=== PATIENT | male | born 1965 | race Caucasian/White ===

== ENCOUNTER 2016-07-10 03:46 | Emergency (ER) | payer SELFPAY ==
[~2016-07-10] VITALS: Ht 182.9 cm; Wt 130.0 kg
[2016-07-10 03:48] VITALS: BP 229/129; PULSE 78; RESP 20; TEMP 97.8; O2SAT 99
[2016-07-10 03:53] VITALS: BP 186/114
[2016-07-10] MEDS ORDERED: LIDOCAINE HCL 1% PF 30 ML VIAL INFIL ONE (04:15)
[2016-07-10] MEDS ORDERED: cloNIDine HCL 0.1 MG TAB PO ONE (04:15)
[2016-07-10] MEDS ORDERED: TETANUS/DIPHTHERIA TOXOID ADULT 0.5 ML VIAL IM ONE (04:15)
--- NOTE | 2016-07-10 04:16 | PD ---
HPI Chief Complaint: Laceration/Skin Injury Time Seen by Provider: 04:00 Travel History International Travel<30 days: No Contact w/Intl Traveler<30days: No Traveled to known affect area: No History of Present Illness HPI 50-year-old male presents for evaluation of lacerations to the plantar aspect of the left foot. Prior to arrival the patient was getting up to use the bathroom when he slipped on a bed railing that was sitting next to the bed. He sustained lacerations on the railing. He also twisted his right ankle in the process. He now has lateral right ankle pain, mild, aggravated by movement, as well as pain associated with the lacerations which is worse with palpation. Denies any range of motion limitations. Last tetanus vaccination unknown. No other complaints. PFSH Past Medical History Medical History: Denies Significant Hx Diminished Hearing: No Tetanus Vaccination: Unknown Past Surgical History Other Surgery: Yes (RIGHT TENDON) Social History Alcohol Use: Yes (WEEKLY) Tobacco Use: No Substance Use: No Allergies-Medications (Allergen,Severity, Reaction): Uncoded Allergies: PEACHES (Allergy, Intermediate, Hives, 07/10/16) Reported Meds & Prescriptions Reported Meds & Active Scripts Active Keflex (Cephalexin) 500 Mg Cap 500 Mg PO Q8H 7 Days Tylenol-Codeine #3 (Acetaminophen-Codeine) 300-30 mg Tab 1-2 Tab PO Q6H PRN Review of Systems Except as stated in HPI: all other systems reviewed are Neg Physical Exam Narrative GENERAL: Well-nourished male in no acute distress SKIN: Warm and dry. 1 cm laceration plantar aspect proximal left fifth toe. The flexor tendon is visible but not damaged. Once centimeter laceration plantar aspect proximal left fourth toe. No flexor tendon visibility. Superficial skin tear plantar aspect left third toe. Extremities: Skin as noted above. The patient maintains full range of motion of the injured toes. Normal muscle strength and sensation. Mild tenderness to palpation to the lateral right ankle. Pain with dorsi and plantar flexion. Data Data Last Documented VS Vital Signs Date Time Temp Pulse Resp B/P Pulse Ox O2 Delivery O2 Flow Rate FiO2 07/10/16 03:53 186/114 07/10/16 03:48 97.8 78 20 99 Room Air Orders Ankle, Complete ([id number]) (07/10/16 ) Tetanus/Diphtheria Tox Adult (Tetanus/Di (07/10/16 04:15) Lidocaine Pf 1% Inj (Xylocaine-Mpf 1% In (07/10/16 04:15) Clonidine (Catapres) (07/10/16 04:15) Wound Care (07/10/16 05:10) Crutches (07/10/16 05:13) Splint Or Brace Apply/Monitor (07/10/16 05:32) Mandatory Outpatient Referral (07/10/16 05:32) MDM Medical Decision Making Medical Screen Exam Complete: Yes Emergency Medical Condition: Yes Medical Record Reviewed: Yes Differential Diagnosis Cutaneous laceration, flexor tendon injury, open fracture, lateral ankle sprain Narrative Course 50-year-old male with lacerations to the plantar aspect of left foot fourth and fifth toes. No flexor tendon damage. The lacerations will be repaired with sutures, a verbally consents. He also has lateral right ankle pain, His blood pressure was also elevated at 180. He has no history of high blood pressure but he does not currently see a primary care physician. It was recommended to him that he keep a journal of his blood pressure readings, check it 3-4 times a week, and follow up with a primary care physician to discuss results, he may require antihypertensive therapy. 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 X-ray reveals a distal fibular fracture. A mandatory outpatient referral has been placed and he will be placed in a Feldman splint. He is stable for discharge. Procedures Procedure Narrative LACERATION LOCATION: Plantar aspect left fifth toe LENGTH: 1.5 cm NUMBER OF STITCHES/AMADA: 5 REPAIR: The area of the laceration was prepped with Betadine and sterilely draped. The laceration was infiltrated with 1% lidocaine. The wound was copiously irrigated and explored without evidence of foreign body, tendon injury or neurovascular injury. The wound was closed using 4-0 nylon simple interrupted. This was a single layer repair. A sterile dressing was applied. The patient was advised to keep the dressing clean and dry. Patient tolerated the procedure well. LACERATION LOCATION: Plantar aspect left fourth toe LENGTH: 1 cm NUMBER OF STITCHES/AMADA: Four REPAIR: The area of the laceration was prepped with Betadine and sterilely draped. The laceration was infiltrated with 1% lidocaine. The wound was copiously irrigated and explored without evidence of foreign body, tendon injury or neurovascular injury. The wound was closed using 4-0 nylon simple interrupted. This was a single layer repair. A sterile dressing was applied. The patient was advised to keep the dressing clean and dry. Patient tolerated the procedure well. Diagnosis Primary Impression: Laceration of toe of left foot Qualified Code: S91.119A - Laceration of toe of left foot without foreign body present or damage to nail, unspecified toe, initial encounter Additional Impression: Fracture of distal end of fibula Qualified Code: S82.831A - Closed fracture of distal end of right fibula, unspecified fracture morphology, initial encounter Additional Instructions: Follow-up with an orthopedist in the next week. As discussed our telehealth case manager will be calling you at some point to help facilitate an appointment. Do not remove the splint. Crutches. Nonweightbearing right leg. Wash the wounds twice daily with soap and water and apply antibiotic cream, clean bandages. Medication as prescribed. Return in approximately 2 weeks for suture removal. As discussed, monitor blood pressure and a regular basis, keep a journal, discussed results with your primary care physician Med/Other Pt SpecificInfo: Prescription(s) given, Wound Care, Orthopedic Instructions Scripts Cephalexin (Keflex)500 Mg [id number] Mg PO Q8H 7 Days Ref 0 Prov:Ad Eli MD 07/10/16 Acetaminophen-Codeine (Tylenol-Codeine #3)300-30 mg Tab1-2 Tab PO Q6H PRN (PAIN ) #20 TAB Ref 0 Prov:Ad Eli MD 07/10/16 Disposition: 01 DISCHARGE HOME Condition: Stable Chandra Medel Jul 10, 2016 04:15
[2016-07-10] MEDS ORDERED: CEPH-460 PO (05:09)
[2016-07-10] MEDS ORDERED: TYLETAB34 PO (05:09)
--- NOTE | 2016-07-10 05:30 | RADRPT ---
EXAM DATE/TIME: 07/10/2016 04:49 [facility] COMPARISON: No previous studies available for comparison. INDICATIONS : Right ankle pain after twisting ankle this morning. MEDICAL HISTORY : None. SURGICAL HISTORY : None. ENCOUNTER: Initial ACUITY: 1 day PAIN SCORE: 7/10 LOCATION: Right lateral ankle. FINDINGS: Three view exam was performed of the right ankle. Mildly displaced distal fibular/lateral malleolus f racture. Soft tissue swelling. Ankle mortise appears intact. No radiopaque foreign bodies are seen. Bony mineralization is normal. Large plantar calcaneal spur. CONCLUSION: Mildly displaced distal fibula/lateral malleolus fracture. Rodney Mckeon MD on July 10, 2016 at 5:28 Board Certified Radiologist. This report was verified electronically.
== END 2016-07-10 06:08 | disposition home or self-care (01) ==
LOC: NEPK 03:46
DX: S91.112A Laceration without foreign body of left great toe without damage to nail, initial encounter (principal); S82.61XA Displaced fracture of lateral malleolus of right fibula, initial encounter for closed fracture; Z23 Encounter for immunization; W18.41XA Slipping, tripping and stumbling without falling due to stepping on object, initial encounter; Y93.01 Activity, walking, marching and hiking; Y92.003 Bedroom of unspecified non-institutional (private) residence as the place of occurrence of the external cause; Y99.8 Other external cause status
CPT/HCPCS: 12001; 29515; 73610; 90471; 90714; 99283; E0113

== ENCOUNTER 2016-08-25 13:03 | Emergency (ER) | payer SELFPAY ==
[~2016-08-25] VITALS: Ht 185.4 cm; Wt 127.0 kg
[~2016-08-25 13:03] MED LIST: CEPH-460 PO; TYLETAB34 PO
[2016-08-25 13:06] VITALS: BP 225/138; PULSE 92; RESP 24; TEMP 97.8; O2SAT 98
--- NOTE | 2016-08-25 13:10 | PD ---
Physical Exam Time Seen by Provider: 13:09 Narrative 50 y/o male presents for evaluation of L flank pain which started spontaneously at 715 am this AM. denies hematuria, hx of kidney stone. Vital signs reviewed. Seen at triage desk, awaiting bed placement. Data Data Last Documented VS Vital Signs Date Time Temp Pulse Resp B/P Pulse Ox O2 Delivery O2 Flow Rate FiO2 08/25/16 13:06 97.8 92 24 225/138 98 Room Air [facility] Medical Record Reviewed: Yes Supervised Visit with SÁNCHEZ: No Chandra Medel August 25, 2016 13:10
--- NOTE | 2016-08-25 13:41 | PD ---
HPI Chief Complaint: Pain: Acute or Chronic Time Seen by Provider: 13:31 Travel History International Travel<30 days: No Contact w/Intl Traveler<30days: No Traveled to known affect area: No History of Present Illness HPI 50-year-old male here with complaint of left-sided flank pain. Sudden onset left-sided flank pain radiating slightly in the left lower quadrant of the abdomen around 7:00 this morning. He notes some nausea but no vomiting. Pain is moderate, sharp, constant. He denies any urinary symptoms. No history of ureterolithiasis, UTI/pyelonephritis. He has not found anything that made the pain better or worse. He tried a Aleve, and then vomited shortly thereafter prompting ER visit. Patient notably hypertensive in triage, denies known history of same, but states it has been several decades since he last had a routine physical. PFSH Past Medical History Medical History: Denies Significant Hx Diminished Hearing: No Past Surgical History Other Surgery: Yes (RIGHT TENDON) Social History Alcohol Use: Yes Tobacco Use: No Substance Use: No Allergies-Medications (Allergen,Severity, Reaction): Uncoded Allergies: PEACHES (Allergy, Intermediate, Hives, 07/10/16) Reported Meds & Prescriptions Reported Meds & Active Scripts Active Keflex (Cephalexin) 500 Mg Cap 500 Mg PO Q8H 7 Days Tylenol-Codeine #3 (Acetaminophen-Codeine) 300-30 mg Tab 1-2 Tab PO Q6H PRN Review of Systems Except as stated in HPI: all other systems reviewed are Neg Physical Exam Narrative GENERAL: Obese male in no acute distress SKIN: Focused skin assessment warm/dry. HEAD:Normocephalic. EYES: No scleral icterus. No injection or drainage. ENT: Mucous membranes pink and moist. NECK: Supple CARDIOVASCULAR: Regular rate and rhythm. No murmur appreciated. Hypertensive RESPIRATORY: No accessory muscle use. Clear to auscultation. Breath sounds equal bilaterally. GASTROINTESTINAL: Abdomen soft, minimal left lower quadrant tenderness palpation without rebound or guarding ,nondistended. Obese without palpable mass, pulsatile mass. Left-sided CVA pain MUSCULOSKELETAL: No obvious deformities.No edema. NEUROLOGICAL: Awake and alert. Normal speech. PSYCHIATRIC: Appropriate mood and affect; insight and judgment normal. Data Data Last Documented VS Vital Signs Date Time Temp Pulse Resp B/P Pulse Ox O2 Delivery O2 Flow Rate FiO2 08/25/16 14:21 97 08/25/16 14:19 71 20 176/91 08/25/16 13:06 97.8 Room Air Orders Basic Metabolic Panel (Bmp) (08/25/16 13:35) Complete Blood Count With Diff (08/25/16 13:35) Urinalysis - C+S If Indicated (08/25/16 13:35) Ct Abd/Pel W/O Iv Contrast (08/25/16 13:35) Iv Access Insert/Monitor (08/25/16 13:35) Ecg Monitoring (08/25/16 13:35) Oximetry (08/25/16 13:35) Sodium Chloride 0.9% Flush (Ns Flush) (08/25/16 13:45) Morphine Inj (Morphine Inj) (08/25/16 13:45) Ondansetron Inj (Zofran Inj) (08/25/16 13:45) Metoprolol Tartrate Inj (Lopressor Inj) (08/25/16 13:45) Labs Laboratory Tests Test 08/25/16 08/25/16 13:40 13:50 Urine Color YELLOW Urine Turbidity CLEAR Urine pH 5.5 Urine Specific [place] 1.023 Urine Protein TRACE mg/dL Urine Glucose (UA) NEG mg/dL Urine Ketones NEG mg/dL Urine Occult Blood TRACE Urine Nitrite NEG Urine Bilirubin NEG Urine Urobilinogen LESS THAN 2.0 MG/DL Urine Leukocyte Esterase NEG Urine RBC 1 /hpf Urine WBC 1 /hpf Microscopic Urinalysis Comment CULT NOT INDICATED White Blood Count 10.8 TH/MM3 Red Blood Count 4.42 MIL/MM3 Hemoglobin 13.2 GM/DL Hematocrit 40.0 % Mean Corpuscular Volume 90.4 FL Mean Corpuscular Hemoglobin 29.8 PG Mean Corpuscular Hemoglobin 33.0 % Concent Red Cell Distribution Width 12.8 % Platelet Count 133 TH/MM3 Mean Platelet Volume 10.2 FL Neutrophils (%) (Auto) 87.8 % Lymphocytes (%) (Auto) 7.6 % Monocytes (%) (Auto) 3.9 % Eosinophils (%) (Auto) 0.3 % Basophils (%) (Auto) 0.4 % Neutrophils # (Auto) 9.5 TH/MM3 Lymphocytes # (Auto) 0.8 TH/MM3 Monocytes # (Auto) 0.4 TH/MM3 Eosinophils # (Auto) 0.0 TH/MM3 Basophils # (Auto) 0.0 TH/MM3 CBC Comment DIFF FINAL Differential Comment Sodium Level 141 MEQ/L Potassium Level 4.3 MEQ/L Chloride Level 108 MEQ/L Carbon Dioxide Level 25.9 MEQ/L Anion Gap 7 MEQ/L Blood Urea Nitrogen 20 MG/DL Creatinine 1.16 MG/DL Estimat Glomerular Filtration 66 ML/MIN Rate Random Glucose 124 MG/DL Calcium Level 8.9 MG/DL [facility] Medical Decision Making Medical Screen Exam Complete: Yes Emergency Medical Condition: Yes Medical Record Reviewed: Yes Differential Diagnosis 50-year-old male with left flank pain radiating left lower quadrant of abdomen since around 7 AM this morning. Differential includes ureterolithiasis, UTI/ pyelonephritis, AAA, musculoskeletal Narrative Course Patient placed on monitor, IV established and blood obtained. Given morphine, Zofran for symptom control. IV metoprolol for hypertension. CBC, BMP, urinalysis and CT of the abdomen and pelvis were notable for left-sided 3 mm calculus near the ureterovesicular junction with moderate left hydronephrosis. Additional 3 mm and 2 mm nonobstructing right renal calculus and left renal calculus. Patient felt improved, blood pressure normalized Discharged home with symptomatic management and to sutured hepatic antihypertensive Diagnosis Primary Impression: Ureterolithiasis Additional Impression: Hypertension Qualified Code: I10 - Essential hypertension Referrals: [facility] call for appointment Additional Instructions: Percocet as needed for pain. Blood pressure medications as prescribed. Follow- up with primary care physician pressure recheck and establishing care. Med/Other Pt SpecificInfo: Prescription(s) given Scripts Metoprolol Tartrate 25 Mg Tab25 Mg PO BID #60 TAB Ref 0 Prov:Abimbola Arora MD 08/25/16 Oxycodone-Acetaminophen (Percocet)5-325 mg Tab1-2 Tab PO Q6H PRN (PAIN) #15 TAB Ref 0 Prov:Abimbola Arora MD 08/25/16 Disposition: 01 DISCHARGE HOME Condition: Stable Abimbola Arora MD August 25, 2016 13:41
[2016-08-25] MEDS ORDERED: SODIUM CHLORIDE 0.9% FLUSH 10 ML FLUSH IV FLUSH PRN (13:45)
[2016-08-25] MEDS ORDERED: ONDANSETRON HCL 4 MG/2 ML VIAL IVP ONE (13:45)
[2016-08-25] MEDS ORDERED: MORPHINE SULFATE 4 MG/ML INJ IV PUSH ONE (13:45)
[2016-08-25] MEDS ORDERED: METOPROLOL TARTRATE 5 MG/5 ML VIAL IV PUSH ONE (13:45)
[2016-08-25 14:02] LABS: AUTOMATED NEUTROPHIL # 9.5 TH/MM3 (1.8-7.7); BASOPHIL % 0.4 % (0.0-2.0); EOSINOPHIL % 0.3 % (0.0-4.0); HEMO FLAGS DIFF FINAL; LYMPH % 7.6 % (9.0-44.0); LYMPHOCYTE # 0.8 TH/MM3 (1.0-4.8); MEAN CELL VOLUME 90.4 FL (80.0-100.0); MEAN CORPUSCULAR HEMOGLOBIN 29.8 PG (27.0-34.0); MONO % 3.9 % (0.0-8.0); NEUT % 87.8 % (16.0-70.0); PLATELET COUNT 133 TH/MM3 (150-450); RED BLOOD COUNT 4.42 MIL/MM3 (4.50-5.90); RED CELL DISTRIBUTION WIDTH 12.8 % (11.6-17.2); WHITE BLOOD COUNT 10.8 TH/MM3 (4.0-11.0)
[2016-08-25 14:06] LABS: BLOOD, URINE TRACE (NEG); COMMENT (UR) CULT NOT INDICATED; CULTURE IF INDICATED CULT NOT INDICATED; GLUCOSE,URINE NEG (NEG); KETONE, URINE NEG (NEG); NITRITE,URINE NEG (NEG); PH, URINE 5.5 (5.0-8.5); URINE COLOR YELLOW (YELLW/STRAW)
[2016-08-25 14:16] LABS: BICARBONATE 25.9 MEQ/L (21.0-32.0); POTASSIUM 4.3 MEQ/L (3.5-5.1)
[2016-08-25 14:19] VITALS: BP 176/91; PULSE 71; RESP 20; O2SAT 97
[2016-08-25 14:21] VITALS: O2SAT 97
--- NOTE | 2016-08-25 14:44 | RADRPT ---
EXAM DATE/TIME: 08/25/2016 14:26 [facility] COMPARISON: No previous studies available for comparison. INDICATIONS : Left flank pain. ORAL CONTRAST: No oral contrast ingested. RADIATION DOSE: 14.31 CTDIvol (mGy) MEDICAL HISTORY : None SURGICAL HISTORY : None. ENCOUNTER: Initial ACUITY: 1 day PAIN SCALE: 3/10 LOCATION: Left flank TECHNIQUE: Volumetric scanning of the abdomen and pelvis was performed. Using automated exposure control and ad justment of the mA and/or kV according to patient size, radiation dose was kept as low as reasonably achievable to obtain optimal diagnostic quality images. FINDINGS: There is a left-sided obstructive uropathy with a 3 mm calculus on the left side of the bladder proba dago at the very distal portion of the left ureterovesical junction lead may have passed into the blad luz marina at this point. There is also a nonobstructing 3 mm calculus lower pole left kidney. Moderate left hydronephrosis and perinephric stranding. There is a tiny 2 mm nonobstructing calculus in the right kidney. Minimal dependent atelectasis at the lung bases. Fatty liver. Spleen, adrenals and pancreas unremarka ble. No free fluid. No bowel obstruction. No adenopathy. CONCLUSION: 1. Left-sided obstructive uropathy with 3 mm calculus at or near left ureterovesical junction and mod erate left hydronephrosis. Additional nonobstructing 3 mm left renal calculus and 2 mm right renal ca lculus. 2. Fatty liver. Ang Disla MD on August 25, 2016 at 14:38 Board Certified Radiologist. This report was verified electronically.
[2016-08-25 15:00] VITALS: BP 166/85; PULSE 70; RESP 18; O2SAT 97
[2016-08-25] MEDS ORDERED: PERC5TAB12 PO (15:05)
[2016-08-25] MEDS ORDERED: METO25TA3 PO (15:05)
== END 2016-08-25 15:18 | disposition home or self-care (01) ==
LOC: NEPD 13:03
DX: N20.1 Calculus of ureter (principal); I10 Essential (primary) hypertension
CPT/HCPCS: 74176; 80048; 81001; 85025; 96374; 96375; 99285; J2270; J2405